=== PATIENT | female | born 1985 | race Caucasian/White ===

== ENCOUNTER 2016-05-31 07:36 | Emergency (ER) | payer BC ==
[2016-05-31 09:40] VITALS: BP 128/69
--- NOTE | 2016-06-08 15:51 | UC ---
Rusty Rojas Claudia, scribed for Jenifer Shaver MD on 05/31/16 at 0817 . General HPI - HPI Summary HPI Summary: 30 years old female presents to the [facility] with multi- Sx this week. Pt notes gradual onset of Sx over the past 6 days. She admits to cough, sore throat, congestion, TEJADA and sinus pressure. She also admits to some skin diaphoresis and "feeling warm" but is unsure of her temperature. - History of Current Complaint Chief Complaint: UCRespiratory Stated Complaint: SINUS CONGESTION Time Seen by Provider: 05/31/16 08:08 Hx Obtained From: Patient Onset/Duration: Gradual Onset, Lasting Days - about 6 days, Still Present Associated Signs & Symptoms: Positive: Headache - Allergy/Home Medications Allergies/Adverse Reactions: Allergies Allergy/AdvReac Type Severity Reaction Status Date / Time Penicillins Allergy Severe Hives Verified 10/30/15 17:00 Home Medications: Home Medications Guaifenesin/Pseudo 600/60(NF) [Mucinex D 600/60 (NF)] 05/31/16 [History] PMH/Surg Hx/FS Hx/Imm Hx Previously Healthy: Yes Endocrine History Of: Denies: Diabetes, Thyroid Disease Cardiovascular History Of: Denies: Cardiac Disorders, Hypertension Respiratory History Of: Denies: COPD, Asthma, Pneumonia GI/ History Of: Denies: Ulcer - Surgical History Surgical History: Yes Surgery Procedure, Year, and Place: 2011 , [place], [place], TUBAL LIGATION 10/17/15 - Family History Known Family History: Positive: Hypertension - Social History Occupation: Employed Full-time Lives: With Family Alcohol Use: None Substance Use Type: None Smoking Status (MU): Never Smoked Tobacco Review of Systems Constitutional: Other - SKIN DIAPHORESIS Skin: Other - NO RASH Eyes: Negative ENT: Sore Throat, Ear Ache - RIGHT EAR, Other - CONGESTION AND SINUS PRESSURE Respiratory: Cough Cardiovascular: Negative Gastrointestinal: Negative Genitourinary: Negative Motor: Negative Neurovascular: Negative Musculoskeletal: Negative Neurological: Headache Psychological: Negative All Other Systems Reviewed And Are Negative: Yes Physical Exam Triage Information Reviewed: Yes Appearance: Well-Nourished Vital Signs: Initial Vital Signs Temp 98 F 05/31/16 07:41 Pulse 87 05/31/16 07:41 Resp 16 05/31/16 07:41 BP 135/69 05/31/16 07:41 Pulse Ox 99 05/31/16 07:41 Vital Signs Reviewed: Yes Eye Exam: Normal ENT Exam: Other ENT: Positive: Other: - REDNESS OF THE POSTERIOR PHARYNX WITH MIDLINE UVULA MILD SWELLING Dental Exam: Normal Neck exam: Normal Respiratory Exam: Normal Respiratory: Positive: Chest non-tender, Lungs clear, Normal breath sounds Cardiovascular Exam: Normal Cardiovascular: Positive: RRR, No Murmur, Pulses Normal, Brisk Capillary Refill Abdominal Exam: Normal Abdomen Description: Positive: Nontender, No Organomegaly, Soft Musculoskeletal Exam: Normal Musculoskeletal: Positive: Strength Intact Neurological Exam: Normal Neurological: Positive: Other: - nonfocal grossly intact Psychological Exam: Normal - conversing easily and appropriately Skin Exam: Normal, Other - no visible or reported rash Re-Evaluation - Re-Evaluation 1 Re-Evaluation Time: 09:31 Comment: Results of the strep raid test is discussed with pt. Pt declines inhaler Rx. Course/Dx - Course Course Of Treatment: No new problems in ccc, considered differential diagnoses. URI - not getting better (worse), c/w bronchitis. D/w pt. Suspect concomitant post viral cough as well. Seems pleased with care. Questions answered as posed. - Differential Dx - Multi-Symptom Provider Diagnoses: acute bronchitis Discharge - Discharge Plan Condition: Stable Disposition: HOME Prescriptions: Azithromyxin ANNE (NF) [Z-Anne (Zithromax) 250 mg tabs #6] 2 tab PO .TODAY, THEN 1 DAILY #6 tab Patient Education Materials: Acute Bronchitis (ED) Forms: *Work Release Referrals: Non Staff,Doctor [Primary Care Provider] - [facility] [Outside] (follow up in 1-2 weeks ) Additional Instructions: Follow up with a primary care physician as soon as you are able. Seek medical attention for worse or new problems in the meantime. The documentation as recorded by the Rusty delgado Claudia accurately reflects the service I personally performed and the decisions made by me, Jenifer Shaver MD.
== END 2016-05-31 09:40 | disposition home or self-care (01) ==
LOC: UCEAST 07:36
DX: J20.9 Acute bronchitis, unspecified (principal); Z88.0 Allergy status to penicillin
CPT/HCPCS: 87651; 99212; G0463

== ENCOUNTER 2017-01-14 06:02 | Day surgery (SDC) | payer BC ==
[~2017-01-14 06:02] MED LIST: Buffered Lidocaine 0.9% SYRIN* 5 ML/SYR SYRINGE INTRADERM ONE
[2017-01-14 06:57] LABS: Hematocrit 39 % (35-47); Hemoglobin 13.2 g/dl (12.0-16.0); Mean Corpuscular HGB Conc 34 g/dl (31-36); Mean Corpuscular Hemoglobin 30 pg (27-31); Mean Corpuscular Volume 87 fL (80-97); Mean Platelet Volume 9 um3 (7.4-10.4); Red Cell Distribution Width 14 % (10.5-15); White Blood Count 6.2 10^3/ul (3.5-10.8)
[2017-01-14] MEDS ORDERED: fentaNYL* 50 MCG/ML 2 ML VIAL (100 MCG VIAL) ONE ×2 (07:42→09:29)
[2017-01-14] MEDS ORDERED: Midazolam* 1 MG/ML 5 ML VIAL (5 MG) ONE (07:42)
[2017-01-14] MEDS ORDERED: Propofol* 10 MG/ML 20 ML BTL IV PUSH ONE (07:42)
[2017-01-14] MEDS ORDERED: Ondansetron INJ* 2 MG/ML VIAL ONE (08:12)
[2017-01-14] MEDS ORDERED: Dexamethasone IV* 4 MG/ML 1 ML (4 MG) ONE (08:12)
[2017-01-14] MEDS ORDERED: DiMENhydriNATE IV* 50 MG/ML VIAL IV PUSH PRN (08:16)
[2017-01-14] MEDS ORDERED: Ondansetron INJ* 2 MG/ML VIAL IV PRN (08:16)
[2017-01-14] MEDS ORDERED: Ketorolac INJ* 30 MG/ML 1 ML VIAL IV PRN (08:16)
[2017-01-14] MEDS ORDERED: fentaNYL* 50 MCG/ML 2 ML VIAL (100 MCG VIAL) IV PRN (08:16)
[2017-01-14] MEDS ORDERED: HYDROcodone/ACETAMIN 5-325 MG* 1 TAB PO PRN (08:16)
[2017-01-14] MEDS ORDERED: Silver Nitrate/Potassium Nitr* 1 EA STICK ONE (08:17)
[2017-01-14] MEDS ORDERED: Ketorolac INJ* 30 MG/ML 1 ML VIAL ONE (09:14)
[2017-01-14] MEDS ORDERED: oxyCODONE TAB* 5 MG TAB ONE ×2 (09:14→10:06)
[2017-01-14] MEDS: oxyCODONE TAB* 5 MG TAB PO PRN ×2 (09:15→10:07)
[2017-01-14 10:43] VITALS: BP 117/80
--- NOTE | 2017-01-14 10:55 | OP ---
OPERATIVE REPORT: DATE OF OPERATION: 01/14/17 - SDS DATE OF : 81 SURGEON: Abdiaziz Sanchez MD. MINI LAB OPERATOR: None. ANESTHESIOLOGIST: Renny Stephenson MD. ANESTHESIA: General endotracheal tube. PRE-OP DIAGNOSIS: Menorrhagia. POST-OP DIAGNOSIS: Menorrhagia. OPERATIVE PROCEDURE: D and C, hysteroscopy, endometrial ablation. ESTIMATED BLOOD LOSS: Minimal. SPECIMEN: Includes endometrium. FINDINGS: Includes large normal cavity, secondary prolapse. DESCRIPTION OF PROCEDURE: Patient identified, procedure identified as D and C, hysteroscopy, and endometrial ablation. The patient was taken to the operating room, prepped and draped in the usual fashion in dorsal lithotomy position under general anesthesia. A single-tooth tenaculum was placed on the anterior lip of the cervix. The cervix was sounded to 10 cm. The cervical length was sounded to 4 cm, making the cavity length 6 cm. The hysteroscope was inserted and above findings were noted. A sharp curette was inserted and sharp curettage performed with good tissue obtained. The NovaSure device was opened. The array was checked. The device was placed within the uterine cavity. The NovaSure was then manipulated to a cavity width of 4.3 cm, making the power setting of 142. The CO2 perforation test was performed and the device passed. The device was enabled. Then NovaSure ablation took place for 1 minute 9 seconds. At the end of the procedure, the device was removed and the hysteroscope was reinserted and a good ablation was noted and no perforations or injuries were noted. All instruments were removed from the vagina. Hemostasis was achieved with silver nitrate sticks and the patient returned to the recovery room in stable condition. All sponge, instrument counts were correct. [id number]/[facility] #: [id number] [facility]
== END 2017-01-14 10:40 | disposition home or self-care (01) ==
LOC: OR 06:02
PROVIDERS: ATTEND Obstetrics & Gynecology
DX: N92.0 Excessive and frequent menstruation with regular cycle (principal); Z68.32 Body mass index [BMI] 32.0-32.9, adult; D49.0 Neoplasm of unspecified behavior of digestive system
CPT/HCPCS: 36415; 85025; 86850; 86900; 86901; 88305; A9270-GY; J1100; J1885; J2250; J2405; J2704; J3010

== ENCOUNTER 2017-10-06 07:05 | Emergency (ER) | payer BC ==
[2017-10-06 07:23] VITALS: BP 138/78
--- NOTE | 2017-10-06 07:34 | UC ---
Throat Pain/Nasal Devyn HPI - HPI Summary HPI Summary: STARTED FEELING UNWELL ABOUT 2 WEEKS AGO WITH HEADACHE AND MALAISE. FOR THE PAST 4 DAYS HAS HAD SORE THROAT, PAIN WITH SWALLOWING AND SUBJECTIVE FEVER/ CHILLS. HAS NASAL CONGESTION AND DRAINAGE. NO EAR PAIN OR NAUSEA/VOMITING. - History of Current Complaint Chief Complaint: UCGeneralIllness Stated Complaint: SINUS ISSUE Time Seen by Provider: 10/06/17 07:15 Hx Obtained From: Patient Hx Last Menstrual Period: mar Onset/Duration: Gradual Onset, Lasting Days, Still Present Severity: Moderate Pain Intensity: 8 Pain Scale Used: 0-10 Numeric Cough: None Associated Signs & Symptoms: Positive: Fever - Allergies/Home Medications Allergies/Adverse Reactions: Allergies Allergy/AdvReac Type Severity Reaction Status Date / Time Penicillins Allergy Hives Verified 10/06/17 07:15 PMH/Surg Hx/FS Hx/Imm Hx Previously Healthy: Yes - Surgical History Surgical History: Yes Surgery Procedure, Year, and Place: 2011 , [place], [place], TUBAL [place]IG[place] 10/17/15 [facility] [place] - Family History Known Family History: Negative: Hypertension - Social History Alcohol Use: None Substance Use Type: None Smoking Status (MU): Never Smoked Tobacco - Immunization History Most Recent Influenza Vaccination: 01/2017 Review of Systems Constitutional: Fever, Chills, Fatigue ENT: Sore Throat, Nasal Discharge Respiratory: Negative Cardiovascular: Negative Gastrointestinal: Negative Neurological: Headache All Other Systems Reviewed And Are Negative: Yes Physical Exam Triage Information Reviewed: Yes Appearance: Well-Appearing, No Pain Distress, Well-Nourished Vital Signs: Initial Vital Signs Temp 98.4 F 10/06/17 07:17 Pulse 89 10/06/17 07:17 Resp 17 10/06/17 07:17 BP 138/78 10/06/17 07:17 Pulse Ox 98 10/06/17 07:17 Vital Signs Reviewed: Yes Eyes: Positive: Conjunctiva Clear ENT: Positive: Hearing grossly normal, Pharyngeal erythema, TMs normal, Tonsillar swelling. Negative: Tonsillar exudate Neck: Positive: Supple, Tenderness @ - minimally tender spfl cervical lad, Enlarged Nodes @ - mild spfl cervical lad Respiratory Exam: Normal Cardiovascular Exam: Normal Abdomen Description: Positive: Soft Musculoskeletal: Positive: No Edema Neurological: Positive: Alert Psychological: Positive: Age Appropriate Behavior Skin: Negative: rashes Diagnostics - Laboratory Diagnostic Studies Completed/Ordered: STREP NEG Throat Pain/Nasal Course/Dx - Differential Dx/Diagnosis Provider Diagnoses: ACUTE PHARYNGITIS/URI Discharge - Sign-Out/Discharge Documenting (check all that apply): Discharge/Admit/Transfer - Discharge Plan Condition: Stable Disposition: HOME Prescriptions: Azithromycin 500 mg PO DAILY #5 tab Patient Education Materials: Pharyngitis (ED), Upper Respiratory Infection (ED) Referrals: Lin Alex MD [Primary Care Provider] - If Needed Additional Instructions: YOUR SYMPTOMS MAY BE VIRALLY MEDIATED BUT GIVEN THE LENGTH OF TIME YOU HAVE BEEN ILL AND YOUR UPCOMING TRAVEL WE WILL COVER YOU WITH ANTIBIOTICS. IF YOU START THE MEDICINE BE SURE TO TAKE IT FOR THE FULL COURSE. REST, HYDRATE, OTC MEDS NEEDED. SEEK FOLLOW-UP WITH YOUR PCP IF YOU ARE NOT IMPROVING OVER THE NEXT 1-2 WEEKS. - Billing Disposition and Condition Condition: STABLE Disposition: Home
== END 2017-10-06 08:24 | disposition home or self-care (01) ==
LOC: UCEAST 07:05
DX: J02.9 Acute pharyngitis, unspecified (principal)
CPT/HCPCS: 87651; 99212; G0463